=== PATIENT | male | born 1990 | race Caucasian/White ===

== ENCOUNTER 2022-09-14 11:54 | Emergency (ER) | payer SELFPAY | END 2022-09-14 12:19 | disposition home or self-care (01) | LOC: NAV ERS 11:54 | DX: H00.015 Hordeolum externum left lower eyelid (principal); K21.9 Gastro-esophageal reflux disease without esophagitis; Z79.899 Other long term (current) drug therapy; F17.200 Nicotine dependence, unspecified, uncomplicated | CPT/HCPCS: 99283 ==

== ENCOUNTER 2022-10-11 18:19 | Emergency (ER) | payer BC ==
[2022-10-11] MEDS ORDERED: Boostrix 0.5 ML (Tdap) VIAL (>/=7 yrs of age) ONE (18:28)
[2022-10-11] MEDS ORDERED: Acetaminophen 500 MG TAB ONE (18:56)
[2022-10-11] MEDS ORDERED: Ibuprofen 200 MG TAB ONE (18:56)
[2022-10-11] MEDS ORDERED: Cipro 250 MG TAB ONE (19:03)
[2022-10-11] MEDS ORDERED: Cephalexin 250 MG CAP ONE (19:03)
== END 2022-10-11 19:10 | disposition home or self-care (01) ==
LOC: NAV ERS 18:19
DX: S91.332A Puncture wound without foreign body, left foot, initial encounter (principal); K21.9 Gastro-esophageal reflux disease without esophagitis; F17.200 Nicotine dependence, unspecified, uncomplicated; Z23 Encounter for immunization; W45.0XXA Nail entering through skin, initial encounter
CPT/HCPCS: 90471; 90715